=== PATIENT | male | born 1970 | race Caucasian/White ===

== ENCOUNTER 2016-08-15 10:12 | Emergency (ER) | payer BC ==
[2016-08-15 10:33] VITALS: BP 136/79
--- NOTE | 2016-08-15 11:24 | RAD ---
Indication: RIGHT heel pain since RIGHT heel spur surgery 2 years ago. Worsening of symptoms. Comparison: No relevant prior exams available on the [facility] [place] PACS. Technique: 4 views RIGHT hindfoot. Report: Large bones spur at the Achilles tendon insertion. Thickened insertional segment of the Achilles tendon with associated convex overlying skin contour. Additionally there is edema within the pre-Achilles fat. Small plantar fascial origin bone spur. Mild to moderate osteoarthritis at the talocrural, subtalar, and transverse tarsal joints. Os peroneum accessory ossicle noted. No fracture evident. IMPRESSION: 1. Stigmata of chronic insertional Achilles tendinopathy. 2. Small plantar fascial origin bone spur. 3. Osteoarthritis.
--- NOTE | 2016-08-15 12:19 | UC ---
Lower Extremity/Ankle HPI - HPI Summary HPI Summary: RIGHT HEEL CALCANEAL SPUR SURGERY 2 YEARS AGO, NOW FOR LAST TWO WEEKS, HAS HAD WORSENING PAIN AND FEELING OF SWELLING TO RIGHT HEEL. STATES IT FEELS SIMILAR BUT WORSE THAN PAIN THAT WARRANTED SURGERY TWO YEARS AGO. NO TRAUMA. NO FEVER. - History of Current Complaint Chief Complaint: UCLowerExtremity Stated Complaint: RIGHT HEEL COMPLAINT Time Seen by Provider: 08/15/16 10:50 Hx Obtained From: Patient Onset/Duration: Gradual Onset, Lasting Weeks, Worse Since - PROGRESSIVE Severity Initially: Moderate Severity Currently: Moderate Pain Intensity: 5 Pain Scale Used: 0-10 Numeric Aggravating Factor(s): Standing, Ambulation Alleviating Factor(s): Rest Able to Bear Weight: Yes - Risk Factors Gout Risk Factors: Age Over 40, Male DVT Risk Factors: Negative Septic Arthritis Risk Factor: Negative - Allergies/Home Medications Allergies/Adverse Reactions: Allergies Allergy/AdvReac Type Severity Reaction Status Date / Time No Known Allergies Allergy Verified 12/24/13 06:56 Home Medications: Home Medications Omeprazole [Prilosec] 20 mg PO DAILY 08/15/16 [History Confirmed 08/15/16] PMH/Surg Hx/FS Hx/Imm Hx Previously Healthy: Yes Endocrine History Of: Denies: Diabetes Cardiovascular History Of: Denies: Hypertension, Congestive Heart Failure GI/ History Of: Denies: Renal Disease - Surgical History Surgical History: Yes Surgery Procedure, Year, and Place: hernia- 2009. carpal tunnel. JUAN JOSE-EN-Y 2013. gastric bypass - Family History Known Family History: Negative: Other - NO JOINT LAXITY - Social History Occupation: Employed Full-time - [employer] Alcohol Use: None Substance Use Type: None Smoking Status (MU): Former Smoker Amount Used/How Often: 1 PPD X 24 YEARS When Did the Patient Quit Smoking/Using Tobacco: 07/2012 - Immunization History Most Recent Influenza Vaccination: DOES NOT GET Most Recent Tetanus Shot: UP TO DATE Most Recent Pneumonia Vaccination: HAS NOT HAD Review of Systems Constitutional: Negative Skin: Negative Eyes: Negative ENT: Negative Respiratory: Negative Cardiovascular: Negative Gastrointestinal: Negative Genitourinary: Negative Motor: Negative Neurovascular: Negative Musculoskeletal: Arthralgia, Myalgia Neurological: Negative Psychological: Negative All Other Systems Reviewed And Are Negative: Yes Physical Exam Triage Information Reviewed: Yes Appearance: Well-Appearing, Well-Nourished, Pain Distress - MILD Vital Signs: Initial Vital Signs Temp 98 F 08/15/16 10:25 Pulse 75 08/15/16 10:25 Resp 16 08/15/16 10:25 BP 136/79 08/15/16 10:25 Pulse Ox 99 08/15/16 10:25 Vital Signs Reviewed: Yes Eye Exam: Normal ENT Exam: Normal ENT: Positive: Normal ENT inspection Dental Exam: Normal Neck exam: Normal Neck: Positive: Supple, Nontender, No Lymphadenopathy Respiratory Exam: Normal Respiratory: Positive: Chest non-tender, Lungs clear, Normal breath sounds, No respiratory distress, No accessory muscle use Cardiovascular Exam: Normal Cardiovascular: Positive: RRR, No Murmur, Pulses Normal Abdominal Exam: Normal Abdomen Description: Positive: Nontender, No Organomegaly Musculoskeletal: Positive: Strength Intact, ROM Intact, No Edema, Other: - TENDER AT ACHILLES TENDON AND RIGHT HEEL TO PALPATION Neurological Exam: Normal Psychological Exam: Normal Psychological: Positive: Normal Response To Family Skin Exam: Normal Diagnostics - Laboratory Diagnostic Studies Completed/Ordered: HEEL XRAY: IMPRESSION: 1. Stigmata of chronic insertional Achilles tendinopathy. 2. Small plantar fascial origin bone spur. 3. Osteoarthritis. Lower Extremity Course/Dx - Differential Dx/Diagnosis Differential Diagnosis/HQI/PQRI: Fracture (Closed), Sprain, Strain Provider Diagnoses: 1. Stigmata of chronic insertional Achilles tendinopathy. 2. Small plantar fascial origin bone spur. 3. Osteoarthritis. Discharge - Discharge Plan Condition: Stable Disposition: HOME Patient Education Materials: Achilles Tendinitis (ED) Forms: *Work Release Referrals: Marcial Park MD [Medical Doctor] - Micah De Jesus DPM [Doctor of Podiatric Medicine] - Carlos Valencia DPM [Doctor of Podiatric Medicine] - Amy Espitia MD [Primary Care Provider] - Uday Garcia DPM [Doctor of Podiatric Medicine] - Cristian Prieto DPM [Doctor of Podiatric Medicine] -
== END 2016-08-15 12:08 | disposition home or self-care (01) ==
LOC: UCCORT 10:12
DX: M76.61 Achilles tendinitis, right leg (principal); M77.31 Calcaneal spur, right foot; M19.071 Primary osteoarthritis, right ankle and foot; Z87.891 Personal history of nicotine dependence
CPT/HCPCS: 99211; G0463

== ENCOUNTER 2018-08-08 10:41 | Emergency (ER) | payer BC, OTHER ==
[2018-08-08 10:59] VITALS: BP 135/104
--- NOTE | 2018-08-08 11:23 | UC ---
Upper Extremity HPI - HPI Summary HPI Summary: Patient presents to urgent care with 2 days progressive discomfort to the dorsum of his right wrist/forearm. Patient is right-hand dominant. Patient states pain is present only with movement. Patient states intermittently feels that shoe to his elbow. Patient states when he moves his thumb pain seems worse. No fevers or chills. Patient has taken Motrin with mild improvement. Patient did not apply ice or heat. 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 Patient without history of similar. Patient denies any hand or arm weakness or paresthesias. Patient with mild erythema today but states it could be from his glove but is unsure. No history of gout. Patient's medications reviewed this visit. pt is not immunocompromised - History of Current Complaint Chief Complaint: UCUpperExtremity Stated Complaint: RIGHT ARM PAIN Time Seen by Provider: 08/08/18 11:13 Hx Obtained From: Patient Onset/Duration: Gradual Onset Severity Initially: Moderate Severity Currently: Moderate Pain Intensity: 2 Pain Scale Used: 0-10 Numeric - Allergies/Home Medications Allergies/Adverse Reactions: Allergies Allergy/AdvReac Type Severity Reaction Status Date / Time No Known Allergies Allergy Verified 08/08/18 10:51 Home Medications: Home Medications Ibuprofen TAB* [Motrin TAB* 600 MG] 600 mg PO ONCE PRN 08/08/18 [History Confirmed 08/08/18] PMH/Surg Hx/FS Hx/Imm Hx Previously Healthy: Yes - Surgical History Surgical History: Yes Surgery Procedure, Year, and Place: hernia- 2009. carpal tunnel right. JUAN JOSE-EN -Y 12/2013. gastric bypass - Family History Known Family History: Negative: Other - NO JOINT LAXITY - Social History Alcohol Use: None Substance Use Type: None Smoking Status (MU): Former Smoker Amount Used/How Often: 1 PPD X 24 YEARS When Did the Patient Quit Smoking/Using Tobacco: 07/2012 - Immunization History Most Recent Influenza Vaccination: DOES NOT GET Most Recent Tetanus Shot: UP TO DATE Most Recent Pneumonia Vaccination: HAS NOT HAD Review of Systems All Other Systems Reviewed And Are Negative: Yes Skin: Positive: Other - right dosrum distal forarm mild erythema Motor: Positive: Negative Neurovascular: Positive: Negative Musculoskeletal: Positive: Other: - pain right distal forearm Is Patient Immunocompromised?: No Physical Exam - Summary Physical Exam Summary: Vital Signs Reviewed: Yes A+Ox3, no distress Eyes: Conjunctiva Clear, ENT: Hearing grossly normal Neck: Positive: Supple Respiratory: Positive: No respiratory distress, No accessory muscle use Cardiovascular: 2+ radial, 2+ ulnar CBT <2 sec Musculoskeletal Exam: + flex/ext elbow, wrist + pronate/supinate + TTP distal right forearm on dorsal aspect along pollicis tendon prox to wrist mild tender. mild erythema, no fluctance. Pain increases with thumb extension, abduction. No weakness no pain along MCP, IP joint Neurological: Positive: Alert, + sensation throughout + sensation throughout Psychological: Positive: Normal Response To Family Skin: Positive: no rash, no ecchymosis, mild erythmea along pollis Triage Information Reviewed: Yes Vital Signs: Initial Vital Signs Temp 97.9 F 08/08/18 10:52 Pulse 75 08/08/18 10:52 Resp 18 08/08/18 10:52 BP 135/104 08/08/18 10:52 Pulse Ox 1 08/08/18 10:52 Upper Extremity Course/Dx - Course Course Of Treatment: Pt with 2 days non traumatic increasing dicomfort along dorsum, radial aspect of right hand. dominant. Sx increase with movement of thumb and direct palp over pollicis tendon. Pt with mild erythema. Differential includes overused tendonitis, cellulitis, or potential gout - recommend lab work - pt declined. will start abx. thumb spica. strict return precautions. motrin/apap. f/u with ortho vs sports medicine - Differential Dx/Diagnosis Provider Diagnosis: Tendonitis Discharge - Sign-Out/Discharge Documenting (check all that apply): Patient Departure All imaging exams completed and their final reports reviewed: No Studies - Discharge Plan Condition: Stable Disposition: HOME Prescriptions: Amoxicillin/Clavulanate TAB* [Augmentin TAB 875*] 875 mg PO BID #14 tab Patient Education Materials: Tendinitis (ED) Referrals: [facility] [Provider Group] Marcial Park MD [Medical Doctor] - Additional Instructions: - take antibiotics as prescribed until gone - Alternate ibuprofen (Advil. Motrin) 600mg and tylenol every 3hours for pain. Take with food - wear splint as much as possible - contact the sports medicine clinic or the orthopedic providers to schedule a follow-up appointment tomorrow. - If you develop increased pain, fevers, red streaking, or any other concerns it is recommended you go to the emergency department for further evaluation and treatment - Billing Disposition and Condition Condition: STABLE Disposition: Home
== END 2018-08-08 11:40 | disposition home or self-care (01) ==
LOC: UCCORT 10:41
DX: M77.9 Enthesopathy, unspecified (principal); R23.8 Other skin changes; Z87.891 Personal history of nicotine dependence
CPT/HCPCS: 99213; G0463

== ENCOUNTER 2021-04-15 10:16 | Inpatient (IN) ==
[~2021-04-15 10:16] MED LIST: Buffered Lidocaine 1% SYRIN 1 ml INTRADERM ONE; Lactated Ringers 1000 ml BAG 1,000 ML IV SCH
[2021-04-15] MEDS ORDERED: ceFAZolin 2 GM in NS PREMIX 2 GM/100 ML BAG IVPB ONE (10:33)
[2021-04-15] MEDS ORDERED: Buffered Lidocaine 1% SYRIN 1 ml INTRADERM ONE (11:00)
[2021-04-15] MEDS ORDERED: fentaNYL 100 mcg/2 ml 50 MCG/ML VIAL ONE ×2 (11:55→17:32)
[2021-04-15] MEDS ORDERED: Midazolam 2 mg/2 ml VIAL 1 mg/ml 2 ml VIAL (2 mg) ONE ×2 (11:55→13:03)
[2021-04-15] MEDS ORDERED: Propofol 10 MG/ML 20 ML BTL ONE (12:13)
[2021-04-15] MEDS ORDERED: Lidocaine 2% PF 5 ML VIAL ONE (12:14)
[2021-04-15] MEDS ORDERED: Rocuronium 50 mg VIAL 10 mg/ml 5 ml VIAL (50 mg) ONE ×2 (13:04→13:05)
[2021-04-15] MEDS ORDERED: Ropivacaine 5 MG/ML 20 ML VIAL 0.5% (100 MG) ONE ×2 (13:07→17:11)
[2021-04-15] MEDS ORDERED: Prochlorperazine 5 mg/ml 2 ml VIAL (10 mg) IV PRN (13:19)
[2021-04-15] MEDS ORDERED: Naloxone 0.4 mg VIAL 0.4 mg/ml 1 ml VIAL IV PRN (13:19)
[2021-04-15] MEDS ORDERED: ceFAZolin VIAL VIAL ONE (14:54)
[2021-04-15] MEDS ORDERED: Dexamethasone IV 4 MG/ML VIAL 1 ml VIAL ONE (15:01)
[2021-04-15] MEDS ORDERED: HYDROmorphone 1 MG/1 ML SYRINGE ONE ×3 (15:18→18:36)
[2021-04-15] MEDS ORDERED: Magnesium Hydroxide LIQ 30 ML UDC PO PRN (15:26)
[2021-04-15] MEDS ORDERED: Ondansetron 4 mg VIAL 2 MG/ML 2 ml VIAL IV PRN (15:26)
[2021-04-15] MEDS ORDERED: diPHENhydraMINE IV 50 MG/ML 1 ml VIAL (BENADRYL) IV PRN (15:26)
[2021-04-15] MEDS ORDERED: Morphine 2 MG/ML SYRINGE IV PRN (15:26)
[2021-04-15] MEDS ORDERED: Ondansetron ODT 4 mg TAB 4 MG TAB PO PRN (15:26)
[2021-04-15] MEDS ORDERED: Lactulose 30 ml UDC PO PRN (15:26)
[2021-04-15] MEDS ORDERED: diPHENhydraMINE 25 mg TAB PO PRN (15:26)
[2021-04-15] MEDS ORDERED: Lactated Ringers 1000 ml BAG 1,000 ML IV SCH (16:00)
[2021-04-15] MEDS ORDERED: Ondansetron 4 mg VIAL 2 MG/ML 2 ml VIAL ONE (16:22)
[2021-04-15] MEDS: HYDROmorphone 1 MG/1 ML SYRINGE IV PRN ×7 (17:54→18:53)
[2021-04-15] MEDS ORDERED: Ramelteon 8 mg TAB (NF) PO SCH (21:00)
[2021-04-15] MEDS: ceFAZolin 1 GM ADVAN 1 GM in NS 0.9% 50 ML 50 ML IVPB SCH (22:12)
[2021-04-15] MEDS: Prochlorperazine 5 mg/ml 2 ml VIAL (10 mg) IV PRN (22:12)
[2021-04-15] MEDS: Magnesium Hydroxide LIQ 30 ML UDC PO SCH (22:28)
[2021-04-16] MEDS: ceFAZolin 1 GM ADVAN 1 GM in NS 0.9% 50 ML 50 ML IVPB SCH ×2 (06:28→14:07)
[2021-04-16 07:05] LABS: Hematocrit 43 % (42-52); Hemoglobin 14.5 g/dL (14.0-18.0); Mean Platelet Volume 8.9 fL (7.4-10.4); Platelet Count 277 10^3/uL (150-450)
[2021-04-16 07:08] LABS: Calcium 9.1 mg/dL (8.6-10.3); EGFR African American 112.6 (>60); Potassium 3.8 mmol/L (3.5-5.0)
[2021-04-16] MEDS: Prochlorperazine 5 mg/ml 2 ml VIAL (10 mg) IV PRN (07:42)
[2021-04-16] MEDS: Magnesium Hydroxide LIQ 30 ML UDC PO SCH (07:43)
[2021-04-16] MEDS ORDERED: Vitamin THERAPEUTIC TAB PO SCH (09:00)
[2021-04-16] MEDS ORDERED: HYDROmorphone 1 MG/1 ML SYRINGE ONE (09:09)
[2021-04-16 14:16] VITALS: BP 125/83
== END 2021-04-16 15:00 | disposition home or self-care (01) | DRG 470 ==
LOC: AA 10:16 → SSU 19:30
PROVIDERS: ADMIT Orthopaedic Surgery Adult Reconstructive Orthopaedic Surgery; ATTEND Orthopaedic Surgery Adult Reconstructive Orthopaedic Surgery

== ENCOUNTER 2023-03-28 09:50 | Observation (INO) ==
[~2023-03-28 09:50] MED LIST changes: +Naloxone 0.4 mg VIAL 0.4 mg/ml 1 ml VIAL IV PRN; +Ondansetron 4 mg VIAL 2 MG/ML 2 ml VIAL IV PRN; +Prochlorperazine 5 mg/ml 2 ml VIAL (10 mg) IV PRN
[2023-03-28] MEDS ORDERED: ceFAZolin 2 GM PREMIX 2 GM/50 ML BAG ONE (10:10)
[2023-03-28] MEDS ORDERED: Ketamine HCL 50 mg/ml 10 ml VIAL (500 MG) ONE (10:22)
[2023-03-28] MEDS ORDERED: fentaNYL 250 mcg/5 ml 50 MCG/ML 5 ml VIAL (250 MCG) ONE ×2 (10:22→13:20)
[2023-03-28 10:26] LABS: Rapid COVID-19 Molecular Undetected (Undetected)
[2023-03-28] MEDS ORDERED: Lidocaine 2% PF 5 ML VIAL ONE ×2 (10:37→12:26)
[2023-03-28] MEDS ORDERED: Propofol 10 MG/ML 20 ML BTL ONE ×2 (10:37→12:22)
[2023-03-28] MEDS ORDERED: Glycopyrrolate IV 0.2 MG/ML 1 ML VIAL ONE ×2 (10:44→10:46)
[2023-03-28] MEDS ORDERED: ROPIVACAINE 5 MG/ML 30 ML BTL (0.5%) ONE ×2 (12:05→13:13)
[2023-03-28] MEDS ORDERED: Midazolam 2 mg/2 ml VIAL 1 mg/ml 2 ml VIAL (2 mg) ONE (12:23)
[2023-03-28] MEDS ORDERED: fentaNYL 100 mcg/2 ml 50 MCG/ML VIAL ONE (12:23)
[2023-03-28] MEDS ORDERED: Rocuronium 50 mg VIAL 10 mg/ml 5 ml VIAL (50 mg) ONE ×2 (12:26→13:33)
[2023-03-28] MEDS ORDERED: Ondansetron 4 mg VIAL 2 MG/ML 2 ml VIAL IV PRN (12:40)
[2023-03-28] MEDS ORDERED: Morphine 2 MG/ML SYRINGE IV PRN (12:40)
[2023-03-28] MEDS ORDERED: Magnesium Hydroxide LIQ 30 ML UDC PO PRN (12:40)
[2023-03-28] MEDS ORDERED: Lactulose 30 ml UDC PO PRN (12:40)
[2023-03-28] MEDS ORDERED: ceFAZolin 1 GM in Dextrose 1 GM/50 ML BAG ONE (12:46)
[2023-03-28] MEDS ORDERED: Lactated Ringers 1000 ml BAG 1,000 ML IV SCH (13:00)
[2023-03-28] MEDS ORDERED: HYDROmorphone 0.5 MG/0.5 ML SYRINGE ONE (13:05)
[2023-03-28] MEDS ORDERED: Ondansetron 4 mg VIAL 2 MG/ML 2 ml VIAL ONE ×2 (13:27→16:04)
[2023-03-28] MEDS ORDERED: Dexamethasone IV 4 MG/ML VIAL 1 ml VIAL ONE (13:27)
[2023-03-28] MEDS ORDERED: HYDROmorphone 1 MG/1 ML SYRINGE ONE ×2 (16:01→17:23)
[2023-03-28] MEDS ORDERED: Metoclopramide 5 MG/ML VIAL (10 mg) ONE (16:04)
[2023-03-28] MEDS: HYDROmorphone 1 MG/1 ML SYRINGE IV PRN ×3 (16:04→17:25)
[2023-03-28] MEDS ORDERED: Prochlorperazine 5 mg/ml 2 ml VIAL (10 mg) ONE (16:06)
[2023-03-28] MEDS ORDERED: Albuterol HFA INHALER 8 gm MDI INH PRN (16:06)
[2023-03-28] MEDS ORDERED: HYDROmorphone 1 MG/1 ML SYRINGE IV PRN (18:06)
[2023-03-28] MEDS: ceFAZolin 1 GM ADVAN 1 GM in NS 0.9% 50 ML 50 ML IVPB SCH ×3 (19:13→21:49)
[2023-03-28] MEDS: Magnesium Hydroxide LIQ 30 ML UDC PO SCH (20:17)
[2023-03-29] MEDS: Ondansetron ODT 4 mg TAB 4 MG TAB PO PRN ×2 (00:31→09:08)
[2023-03-29] MEDS: ceFAZolin 1 GM ADVAN 1 GM in NS 0.9% 50 ML 50 ML IVPB SCH ×2 (05:00→13:19)
[2023-03-29 06:52] LABS: Hematocrit 41.7 % (38-53); Hemoglobin 14.1 g/dL (13.2-16.3); Mean Platelet Volume 8.1 fL (7.5-11.2); Platelet Count 204 10^3/uL (150-450)
[2023-03-29 07:08] LABS: Creatinine, Serum 0.95 mg/dL (0.67-1.17); Potassium 4.2 mmol/L (3.5-5.0); eGFR CKD-EPI 94.5 (>60)
[2023-03-29] MEDS ORDERED: Vitamin THERAPEUTIC TAB PO SCH (09:00)
[2023-03-29] MEDS ORDERED: Multivitamins/Minerals TAB PO SCH (09:00)
[2023-03-29] MEDS: Magnesium Hydroxide LIQ 30 ML UDC PO SCH (09:05)
[2023-03-29] MEDS ORDERED: Influenza vaccine *QUAD* *2023-24* 0.5 ML SYRINGE IM ONE (11:30)
[2023-03-29 13:47] VITALS: BP 108/68
== END 2023-03-29 14:07 | disposition home or self-care (01) ==
LOC: SDS 09:50 → SSU 09:50
PROVIDERS: ADMIT Orthopaedic Surgery Adult Reconstructive Orthopaedic Surgery; ATTEND Orthopaedic Surgery Adult Reconstructive Orthopaedic Surgery